=== PATIENT | male | born 1950 | race Caucasian/White ===

== ENCOUNTER → 2020-04-18 | Outpatient (CLI) | payer MEDICARE ==
[2020-04-18 20:57] LABS: Hemoglobin A1C 5.9 % (4.0-6.0)
[2020-04-18 21:09] LABS: African American GFR (CKD) 72.1 (60.0-200.0); Anion Gap 7.1 mmol/L (4.00-12.00); BUN/Creat Ratio 11.67 Ratio (12.00-20.00); Calcium 9.3 mg/dL (8.7-10.3); Carbon Dioxide 28.9 mmol/L (21.6-31.8); Chol/HDL Ratio 3.4; LDL Cholesterol,Calculated 80.6 mg/dL (0.0-131.0); Non-African American GFR(CKD) 62.2 (60.0-200.0); Potassium 3.8 mmol/L (3.5-5.5); VLDL Calculation 15.4 mg/dL (5.00-40.00)
== END | disposition home or self-care (01) ==
LOC: LABWHC1 11:55
PROVIDERS: ATTEND Physician Assistant
DX: Z00.00 Encounter for general adult medical examination without abnormal findings (principal); I10 Essential (primary) hypertension; E78.5 Hyperlipidemia, unspecified
CPT/HCPCS: 36415; 80048; 80061; 83036

== ENCOUNTER 2024-06-22 09:08 | Day surgery (SDC) | payer MEDICARE ==
[2024-06-19 15:43] VITALS: BMI 32.1
[2024-06-22 10:40] LABS: Basophils % (A) 1 %; Eosinophils # (A) 0.2 k/uL (0-0.7); Eosinophils % (A) 3 %; HCT 47.6 % (39.0-53.0); HGB 15.9 gm/dL (13.0-17.5); Lymphocytes # (A) 1.5 k/uL (1.0-4.8); Lymphocytes % (A) 27 %; MCH 31.9 pg (25.0-35.0); MCHC 33.3 g/dL (31.0-37.0); MCV 95.8 fL (80.0-100.0); Mean Platelet Volume 7.5; Monocytes # (A) 0.4 k/uL (0-1.0); Monocytes % (A) 7 %; Neutrophils # (A) 3.4 k/uL (1.3-7.7); Neutrophils % (A) 60 %; Platelet Count 221 k/uL (150-450); RBC 4.98 m/uL (4.30-5.90); RDW 13.3 % (11.5-15.5); WBC 5.7 k/uL (3.8-10.6)
[2024-06-22 10:52] LABS: ALT 21 U/L (4-49); AST 25 U/L (17-59); African American GFR (CKD) 72 (>60 ml/min/1.73 sqM); Albumin 4.4 g/dL (3.5-5.0); Alkaline Phosphatase 108 U/L (38-126); Anion Gap 5 mmol/L; Blood Urea Nitrogen 23 mg/dL (9-20); Calcium 8.9 mg/dL (8.4-10.2); Carbon Dioxide 31 mmol/L (22-30); Chloride 106 mmol/L (98-107); Glucose 106 mg/dL (74-99); Non-African American GFR(CKD) 62 (>60 ml/min/1.73 sqM); Potassium 3.4 mmol/L (3.5-5.1); Sodium 142 mmol/L (137-145); Total Bilirubin 1.3 mg/dL (0.2-1.3); Total Protein 7.5 g/dL (6.3-8.2)
[2024-06-22] MEDS: IV FLUID CONTINUATION 1,000 ML IV ONE (11:06)
[2024-06-22] MEDS: SODIUM CHLORIDE 0.9% 1,000 ML IV SCH (11:07)
[2024-06-22] MEDS ORDERED: MIDAZOLAM 2 MG/2 ML VIAL ONE (11:20)
[2024-06-22] MEDS ORDERED: PHENYLEPHRINE 10 MG/ML VIAL ONE (11:20)
[2024-06-22] MEDS ORDERED: HEPARIN SODIUM,PORCINE 10,000 UNIT/ML 1 ML VIAL ONE (11:20)
[2024-06-22] MEDS ORDERED: ePHEDrine 50 MG/ML 1 ML VIAL ONE (11:20)
[2024-06-22] MEDS ORDERED: LIDOCAINE 1% INJ 10MG/ML (20 ML MDV) ONE (11:20)
[2024-06-22] MEDS ORDERED: fentaNYL (PF) 50 MCG/ML 2 ML AMP ONE (11:20)
[2024-06-22] MEDS ORDERED: LIDOCAINE 4% LTA KIT (4 ML) TOPICAL ONE (11:20)
[2024-06-22] MEDS ORDERED: SUCCINYLCHOLINE CHLORIDE 200 MG/10 ML VIAL IV ONE (11:20)
[2024-06-22] MEDS ORDERED: PROPOFOL 10 MG/ML 20 ML VIAL IV ONE (11:20)
--- NOTE | 2024-06-22 11:53 | P.HPCAR ---
History of Present Illness This is Dr. Mckeon dictating an H/P on this patient The patient was interviewed and examined IMPRESSION / ASSESSMENT: Persistent atrial fibrillation, symptomatic failed treatment Hypertension CKD with a creatinine of 1.3 Left ventricular hypertrophy Prediabetes Dyslipidemia transfer to PLAN: A-fib ablation Maximize antihypertensive therapy Watch renal function HPI Patient continues to have atrial fibrillation with a controlled ventricular response and yet he complains of tiredness and fatigue. He takes Xarelto 20 mg p.o. daily His blood pressure is elevated today and was elevated in the office at the prior visit He is prediabetes and dyslipidemia. He has failed treatment after successful electrical cardioversion with recurrence of atrial fibrillation Currently he is on amlodipine 5 mg twice daily atorvastatin carvedilol valsartan 320 mg p.o. daily and Xarelto 20 mg daily ROS: No fever chills or rigors, no cough, phlegm or expectoration, no nausea, vomiting or diarrhea, no hematuria, dysuria, no musculoskeletal complaints, no strokes or seizures, no skin lesions. EXAMINATION: Afebrile, pulse rate in the 70s irregular Blood pressure 156/98 mmHg Breath sounds are equal bilaterally there are no rhonchi no crackles Heart sounds S1-S2 normal no murmurs rhythm irregular Abdomen soft nontender No JVD No lower extremity edema REVIEW OF LABS, ECG & MEDICAL DATA 2D echo and Doppler study shows preserved LV systolic function with moderate LVH Mildly dilated right ventricle Moderately dilated right and left atria with 2+ mitral regurgitation Stress test last year showed normal myocardial perfusion EKG showed atrial fibrillation Sodium 143, potassium 3.6, BUN 20 and creatinine 1.3 Physical Exam Vitals: Vital Signs Temp Pulse Resp BP Pulse Ox 06/22/24 10:40 97.7 F 72 16 156/98 99 Intake and Output 06/21/24 06/22/24 06/22/24 22:59 06:59 14:59 Other: Weight 100.2 kg Past Medical History Past Medical History: Atrial Fibrillation, Diabetes Mellitus, Hyperlipidemia, Hypertension Additional Past Medical History / Comment(s): see Dr Mckeon's H&P,diet control History of Any Multi-Drug Resistant Organisms: MRSA Date of last positivie culture/infection: MDRO Source:: left knee Past Surgical History: Cholecystectomy Past Anesthesia/Blood Transfusion Reactions: No Reported Reaction Smoking Status: Never smoker - Past Family History Mother Family Medical History: Cancer Additional Family Medical History / Comment(s): metastasis Father Family Medical History: Cancer Additional Family Medical History / Comment(s): brain Physical Examination Vital Signs Temp Pulse Resp BP Pulse Ox 06/22/24 10:40 97.7 F 72 16 156/98 99 Intake and Output 06/21/24 06/22/24 06/22/24 22:59 06:59 14:59 Other: Weight 100.2 kg Results 06/22/24 10:25 06/22/24 10:25 Cardiac Enzymes 06/22/24 Range/Units 10:25 AST 25 (17-59) U/L CBC 06/22/24 Range/Units 10:25 WBC 5.7 (3.8-10.6) k/uL RBC 4.98 (4.30-5.90) m/uL Hgb 15.9 (13.0-17.5) gm/dL Hct 47.6 (39.0-53.0) % Plt Count 221 (150-450) k/uL Comprehensive Metabolic Panel 06/22/24 Range/Units 10:25 Sodium 142 (137-145) mmol/L Potassium 3.4 L (3.5-5.1) mmol/L Chloride 106 (98-107) mmol/L Carbon Dioxide 31 H (22-30) mmol/L BUN 23 H (9-20) mg/dL Creatinine 1.17 (0.66-1.25) mg/dL Glucose 106 H (74-99) mg/dL Calcium 8.9 (8.4-10.2) mg/dL AST 25 (17-59) U/L ALT 21 (4-49) U/L Alkaline Phosphatase 108 (38-126) U/L Total Protein 7.5 (6.3-8.2) g/dL Albumin 4.4 (3.5-5.0) g/dL Current Medications Generic Name Dose Route Start Last Admin Trade Name Freq PRN Reason Stop Dose Admin Sodium Chloride 1,000 mls @ 20 mls/hr 06/22/24 06:08 06/22/24 11:07 Saline 0.9% IV 07/22/24 06:07 20 mls/hr .Q24H DANIEL Administration Intake and Output 06/21/24 06/22/24 06/22/24 22:59 06:59 14:59 Other: Weight 100.2 kg Patient Weight 06/23/24 06:59 Weight 100.2 kg 06/22/24 10:25 06/22/24 10:25
[2024-06-22] MEDS: HEPARIN SOD,PORK IN 0.45% NACL 25,000 UNIT in 0.45% NACL 1 250ML.BAG IV ONE (12:01)
[2024-06-22] MEDS: LIDOCAINE 1% INJ 10MG/ML (20 ML MDV) SQ ONE (12:06)
[2024-06-22] MEDS: IOPAMIDOL-370 100ML BTL INJ ONE (14:19)
--- NOTE | 2024-06-22 14:59 | P.PRLE ---
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 Despite adequate rate control he remains symptomatic with tiredness and fatigue. Today he underwent ablation for atrial fibrillation. I performed an antral level pulmonary vein isolation, ablation of the left atrial septum and ablation of the left atrial roof. Intracardiac echo revealed preserved LV and RV size and function but of thickened pericardium consistent with prior, chronic pericarditis. This explains why his atrial fibrillation has been refractory to treatment. In addition his left superior and right superior pulmonary veins were quite large. He is on anticoagulation for stroke prevention and like every patient who undergoes A-fib ablation it is critical that anticoagulation should NOT be held EVEN TEMPORARILY for 1. 4 weeks prior to the ablation 2. 8 weeks post ablation EVEN IF the patient does not have any left atrial appendage thrombus on intracardiac echo Therefore all procedures that require temporary cessation of anticoagulation should be withheld unless it is an emergency. The stroke risk is real. I would hold off his colonoscopy for about 8 weeks Thank you for entrusting me with the care of the patient Warm regards Sincerely Rico Mckeon
[2024-06-22] MEDS ORDERED: ACETAMINOPHEN TAB 325 MG TAB PO PRN (15:11)
--- NOTE | 2024-06-22 15:11 | P.EPPROC ---
- EP Procedure Note Electrophysiology Procedure Note: PROCEDURE A. fib ablation with antral level pulmonary vein isolation, left atrial septal ablation and left atrial roof ablation using cryoablation DIAGNOSIS System atrial fibrillation, symptomatic spite adequate rate control, refractory to therapy RESULT No left atrial appendage mass seen on intracardiac echo. Enlarged left atrium. Large pulmonary veins, especially right superior, left superior and left inferior Thickened pericardium which was evident even posterior to the LA wall Successful A. fib ablation/pulmonary vein isolation of all veins using cryo- ablation Complete entrance block in all 4 veins confirmed No evidence for phrenic nerve injury Left atrial septal ablation Left atrial roof ablation Esophageal deflection YES Electrical cardioversion with a synchronized shock across the chest YES PROCEDURE DETAILS Written informed consent prior to procedure. Patient brought to the EP lab. General anesthesia given. Heparin administered. A city maintained above 300 seconds Both groins prepped and draped per protocol and venous sheaths placed. Esophag us intubated, circa catheter for temperature monitoring an endoscope for possible esophageal deflection. Phrenic nerve monitoring performed. Esophageal temperature monitoring performed. Esophageal deflection performed if circa catheter overlapping with the balloon or circa temperature less than 27.5C Intracardiac echocardiography performed. Pericardium evaluated. Left atrial appendage evaluated. Left atrium evaluated along with pulmonary veins Transseptal catheterization performed under fluoroscopic guidance and intracardiac echo guidance Cryoablation sheath exchanged, balloon catheter along with achieve catheter placed in the left atrium. Pulmonary veins isolated in the following sequence: Left superior pulmonary vein followed by left inferior pulmonary vein, followed by right inferior pulmonary vein and lastly right superior pulmonary vein. Phrenic nerve stimulation along with capture thresholds within the SVC and right superior pulmonary vein to identify the phrenic nerve proximity to the cryo- balloon. Pulmonary veins isolated and confirmed with entrance and exit block. Phrenic nerve integrity confirmed at the end of the procedure Ablation of the left atrial roof performed with sequential lesions from the left superior to the right superior pulmonary veins. Ablation of the electrograms confirmed Ablation of the left atrial septum performed with cannulation of the inferior branch of the right superior vein to achieve ablation of the posterior septum of the left atrium. Ablation of electrograms confirmed Electrical cardioversion performed for persistence of atrial fibrillation despite successful ablation. Diagnostic catheters for the high right atrium, His bundle, coronary sinus placed. LA and RA pressures recorded RA pressure: 4/0/1 LA pressure: 12/0/5 Diagnostic EP study with coronary sinus pacing and recording Baseline measurements: Post cardioversion ID interval 155 ms, QRS 97 ms, QT 408 ms AH 93 ms and HV 67 ms Venous sheaths were removed and hemostasis assured with a closure device. Patient extubated and transferred to recovery Increase procedural time During ablation multiple attempts had to be made to move the esophagus a safe distance of the from the pulmonary vein draining cryoablation, to avoid excessive thermal cooling of the esophagus This took extra time and effort to keep the esophagus a safe distance away from the cryoablation balloon. Extra amount of time was needed for complete isolation of the right superior and left superior as well as left inferior pulmonary veins. The pulmonary veins were large but despite excellent occlusion and excellent cryo temperatures, pulmonary vein isolation times were greater than 60 seconds along with dissociated signals. Multiple ablations by cannulating different branches of e ach vein was performed and complete antral level isolation was achieved and all veins. However this took an extra amount of time to do so PROCEDURES PERFORMED Diagnostic EP study CS pacing and recording Left and right transseptal catheterization Catheter the mapping of the tachycardia Intracardiac echocardiography Pulmonary vein isolation with transseptal and comprehensive EPS, 14919 Extended procedure duration Left atrial roof line, +[id number] Linear ablation, left atrium septum, +[id number] Electrical cardioversion with a synchronized shock across the chest [id number]
[2024-06-22] MEDS: ACETAMINOPHEN IV (For NPO) 1,000 MG in EMPTY BAG 1 BAG IVPB ONE (17:42)
[2024-06-22] MEDS: carvediloL 3.125 MG TAB PO SCH (17:56)
[2024-06-22] MEDS: amLODIPine 5 MG TAB PO SCH (20:56)
[2024-06-22] MEDS: RIVAROXABAN 20 MG TAB PO SCH (20:56)
[2024-06-22] MEDS: ATORVASTATIN 20 MG TAB PO SCH (20:56)
[2024-06-23 07:26] VITALS: BP 127/81; PULSE 84; RESP 16; TEMP 98.1
--- NOTE | 2024-06-23 07:47 | P.DS ---
Providers Attending physician: Rico Mckeon Primary care physician: [facility] [place] Course: Patient is doing well. He is resting comfortably in bed. He denies any sore throat chest discomfort abdominal discomfort breathing trouble cough or groin pain On examination Blood pressure 127/81 mmHg pulse rate in the 80s and 90s sinus rhythm Afebrile Normal respirations Heart sounds S1-S2 normal and regular Breath sounds are clear there are no rhonchi no crackles Soft abdomen nontender No groin swelling or tenderness No lower extremity edema Impression Persistent symptomatic atrial fibrillation/failed treatment Status post A-fib ablation with antral level PVI, left atrial septal ablation and left atrial roof ablation Large pulmonary veins especially right superior left superior and left inferior with thick sleeves that required multiple ablations in these veins to achieve complete isolation despite the fact that each application was associated with excellent occlusion and excellent temperatures. All veins were successfully isolated at an antral level Hypertension CKD creatinine 1.3-1.4 LVH Dyslipidemia and prediabetes Plan Discharge home today. Patient stable Continue anticoagulation uninterrupted for the next 6 to 8 weeks. This was discussed with the patient Apparently he has had a positive Hemoccult for about a year and is headed for colonoscopy in the next 1 to 2 weeks I have asked him to withhold colonoscopy unless it can be done without stopping Eliquis No elective procedure that will require withholding Eliquis for the next 6 to 8 weeks, unless it is an emergency Continue cardiac medications unchanged Will see him in the office in a week Patient Condition at Discharge: Stable Plan - Discharge Summary Discharge Rx Participant: No New Discharge Prescriptions: No Action Rivaroxaban [Xarelto] 20 mg PO HS Acetaminophen Tab [Tylenol Tab] 1,000 mg PO BID amLODIPine [Norvasc] 5 mg PO BID Valsartan [Diovan] 160 mg PO QAM Atorvastatin [Lipitor] 20 mg PO HS carvediloL [Coreg] 3.125 mg PO BID Discharge Medication List Acetaminophen Tab [Tylenol Tab] 1,000 mg PO BID 06/19/24 [History] Atorvastatin [Lipitor] 20 mg PO HS 06/19/24 [History] Rivaroxaban [Xarelto] 20 mg PO HS 06/19/24 [History] Valsartan [Diovan] 160 mg PO QAM 06/19/24 [History] amLODIPine [Norvasc] 5 mg PO BID 06/19/24 [History] carvediloL [Coreg] 3.125 mg PO BID 06/19/24 [History] Follow up Appointment(s)/Referral(s): Rico Mckeon MD [STAFF PHYSICIAN] - 1 Week Activity/Diet/Wound Care/Special Instructions: Post EP study - Ablation instructions 1. Keep access sites dry for 2 days. 2. No heavy lifting or straining for 2 days. 3. Avoid bending the hips repeatedly for 2 days. 4. You may go up and down stairs slowly 5. If you have had an ablation for atrial fibrillation or atrial flutter and are on a blood thinner, do not stop the blood thinner even temporarily for 3 months post ablation Call if the following is noted 1. Bleeding, increasing swelling or pain at the access sites. 2. Increasing chest discomfort, especially upon taking a deep breath. 3. Increasing shortness of breath, at rest or with exertion. 4. Undue cough / phlegm 5. Difficulty or pain while swallowing. 6. Pain or change in color in the extremities. 7. Fever, chills, rigors. 8. Increasing headache or neurologic symptoms. 9. Dizziness, fainting, palpitations Discharge Disposition: HOME SELF-CARE
[2024-06-23] MEDS: VALSARTAN 160 MG TAB PO SCH (08:31)
== END 2024-06-23 10:33 | disposition home or self-care (01) ==
LOC: CATHEP 09:08 → 6NMEDSUR 14:22 → CATHEP 06-23 10:33
PROVIDERS: ATTEND Internal Medicine Clinical Cardiac Electrophysiology
DX: I48.19 Other persistent atrial fibrillation (principal); E11.22 Type 2 diabetes mellitus with diabetic chronic kidney disease; I12.9 Hypertensive chronic kidney disease with stage 1 through stage 4 chronic kidney disease, or unspecified chronic kidney disease; N18.9 Chronic kidney disease, unspecified; E78.5 Hyperlipidemia, unspecified; I34.0 Nonrheumatic mitral (valve) insufficiency; I65.23 Occlusion and stenosis of bilateral carotid arteries; Z79.01 Long term (current) use of anticoagulants; Z79.899 Other long term (current) drug therapy; Z86.14 Personal history of Methicillin resistant Staphylococcus aureus infection; Z88.8 Allergy status to other drugs, medicaments and biological substances
CPT/HCPCS: 92960; 93656; 93657; 86900; 86901; 80053; 84443; 85025; 86850; C1894; C1769; C1760 ×2; C1730 ×2; C1759; C1733; C1766; J2003; Q9967; J1644